=== PATIENT | male | born 1950 | race Two or more races ===

== ENCOUNTER 2019-04-05 02:37 | Emergency (ER) | payer OTHER, MEDICARE, MEDICAID ==
[~2019-04-05] VITALS: Ht 152.4 cm; Wt 136.1 kg
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
[2019-04-05] MEDS ORDERED: predniSONE 50 MG TABLET PO ONE (03:30)
[2019-04-05] MEDS ORDERED: ALBUTEROL FS 2.5 MG/3 ML VIAL.NEB NEB ONE (03:30)
[2019-04-05] MEDS ORDERED: predniSONE 10 MG TABLET ONE (03:32)
[2019-04-05] MEDS ORDERED: predniSONE 20 MG TABLET ONE (03:32)
--- NOTE | 2019-04-05 03:35 | NUR ---
RESPIRATORY THERAPIST CALLED.
[2019-04-05] MEDS ORDERED: ALBUTEROL FS 2.5 MG/3 ML VIAL.NEB ONE (03:43)
--- NOTE | 2019-04-05 04:17 | NUR ---
Patient in [employer] Officer lyle Santana #[id number] custody. Patient verbalizes understanding of teaching. Breathing treatment given to patient. Patient is Medically Cleared for booking.
[2019-04-05 04:37] VITALS: BP 171/83
== END 2019-04-05 04:39 ==
LOC: ER 02:38
DX: J44.9 Chronic obstructive pulmonary disease, unspecified (principal); E11.9 Type 2 diabetes mellitus without complications
CPT/HCPCS: 71045; 94640; 99283; J7512 ×2